=== PATIENT | female | born 1975 | race Caucasian/White ===

== ENCOUNTER 2020-06-03 16:30 | Emergency (ER) | payer OTHER ==
[~2020-06-03] VITALS: Ht 160 cm; Wt 70.0 kg
[2020-06-03] MEDS ORDERED: DIAZEPAM 5 MG TABLET PO ONE (17:00)
[2020-06-03] MEDS ORDERED: KETOROLAC 60MG/2ML VIAL IM ONE (18:15)
[2020-06-03] MEDS ORDERED: TRAM50TA3 MT (19:29)
[2020-06-03] MEDS ORDERED: IBUP-2029 MT (19:29)
[2020-06-03] MEDS ORDERED: METH-773 MT (19:29)
[2020-06-03 20:20] VITALS: BP 148/82
== END 2020-06-03 20:21 | disposition home or self-care (01) ==
LOC: ER 16:30
DX: M54.2 Cervicalgia (principal); Z88.0 Allergy status to penicillin; Z79.899 Other long term (current) drug therapy; Z59.0 Homelessness
CPT/HCPCS: 70160; 72125; 96372; 99284; J1885